=== PATIENT | female | born 1945 | race Caucasian/White ===

== ENCOUNTER → 2019-06-21 | Emergency (ER) | payer BC, OTHER ==
[~2019-06-21] VITALS: Ht 167.6 cm; Wt 81.6 kg
[~2019-06-21] MED LIST: ALBUAER3 IN; ALBUTEROL SULF 2.5 MG/0.5ML(0.5%) NEB SOLN NEB ONE; BACL20TA PO; DEXT1SYP9 PO; GABA-339 PO; HYDR25TA4 PO; LEVE250T18 PO; LEVO100T8 PO; LEVO500T21 PO; LISI-646 PO; METO10TA3 PO; MULTCAP45 PO; PAR20T PO; POTASSIUM CHL 20 Meq TABLET PO ONE; POTASSIUM EFFERVESENT TAB 25 MEQ PO ONE; RIS1T PO; RISP0.5T45 PO; SIMV-8 PO; SODIUM CHLORIDE 0.9% 1,000 ML IVB ONE; TAMO20TA9 PO; guaiFENesin-DM 100/10mg/5ml SYR PO ONE; levoFLOXacin 500MG 100 ML IV ONE
[2019-06-21 14:31] LABS: Basophils # (auto) 0.1 10 ^3/uL (0-0.2); Basophils % (auto) 0.9 % (0.0-2.0); Eosinophils # (auto) 0.1 10 ^3/uL (0-0.8); Eosinophils % (auto) 1.3 % (0.0-7.0); Hematocrit 47.1 % (36.0-46.0); Hemoglobin 16.1 g/dL (12.2-16.2); Lymphocytes # (auto) 2.1 10 ^3/uL (0.4-5.4); Mean Corpuscular Hemoglobin 32.7 pg (28.0-32.0); Mean Corpuscular Hgb Conc. 34.1 g/dL (32.0-36.0); Mean Corpuscular Volume 95.8 fL (80.0-100.0); Monocytes # (auto) 1.2 10 ^3/uL (0-1.3); Neutrophils # (auto) 6.2 10 ^3/uL (1.6-8.6); Neutrophils % (auto) 63.8 % (37.0-80.0); Platelet Count (auto) 342 10^3/uL (140-450); Red Blood Cells 4.91 10^6/uL (4.0-5.20); Red Cell Distribution Width 14.2 % (11.8-14.3); White Blood Cell 9.6 10^3/uL (4.4-10.8)
[2019-06-21 14:47] LABS: INR 1.03 (0.9-1.15); Partial Thromboplastin Time 27.4 sec (23.64-32.05)
[2019-06-21 14:51] LABS: Albumin 3.3 g/dL (3.4-5.0); Anion Gap 8 (5-15); Blood Urea Nitrogen 7 mg/dL (7-18); Calcium 9.2 mg/dL (8.5-10.1); Carbon Dioxide 29 mmol/L (21-32); Chloride 110 mmol/L (98-107); Glucose 98 mg/dL (74-106); Magnesium 2.1 mg/dL (1.6-2.6); Potassium 3.2 mmol/L (3.5-5.1); Sodium 147 mmol/L (136-145)
[2019-06-21 14:57] LABS: Alanine Aminotransferase 11 U/L (13-56); Alkaline Phosphatase 66 U/L (45-117); Aspartate Aminotransferase 15 U/L (15-37); BUN/Creatinine Ratio 7.9; Bilirubin, Total 0.3 mg/dL (0.2-1.0); GFR African American 80 mL/min; GFR Non-African American 66 mL/min; Total Protein 7.5 g/dL (6.4-8.2)
[2019-06-21 15:15] LABS: Urine Bacteria MANY /hpf (None Seen); Urine Blood Negative /uL (Negative); Urine Mucus FEW (None Seen); Urine Specific Gravity 1.011 (1.001-1.035); Urine WBC 10 /hpf (0 - 5)
[2019-06-21 19:00] VITALS: BP 135/87
--- NOTE | 2019-06-23 10:51 | NUR ---
No call or page received for this consult. Faxed clinical information to [facility] case manager for completion of home health order. Will followup with assigned home health agency.
== END | disposition home or self-care (01) ==
LOC: EDUNIT# 13:07 → ER 13:15 → EDBD 13:15
DX: R41.82 Altered mental status, unspecified (principal); J18.9 Pneumonia, unspecified organism; E87.6 Hypokalemia; I10 Essential (primary) hypertension; I25.10 Atherosclerotic heart disease of native coronary artery without angina pectoris; K21.9 Gastro-esophageal reflux disease without esophagitis; E78.5 Hyperlipidemia, unspecified; Z79.2 Long term (current) use of antibiotics; Z79.899 Other long term (current) drug therapy; Z88.0 Allergy status to penicillin; Z88.1 Allergy status to other antibiotic agents; Z88.6 Allergy status to analgesic agent; Z88.8 Allergy status to other drugs, medicaments and biological substances; Z88.5 Allergy status to narcotic agent
CPT/HCPCS: 36415; 70450; 71045; 80053; 81001; 83605; 83735; 84484; 85025; 85610; 85730; 87040; 93005; 96361; 96365; 96366; 99285; J1956; J7030